=== PATIENT | female | born 1955 | race Caucasian/White ===

== ENCOUNTER → 2017-02-21 | Outpatient (CLI) | payer OTHER ==
[~2017-02-21] MED LIST: ACCUPRIL20TAB PO; ADVIL200 MG PO; AVONEX ADM30 MCG/KIT IM; LEVOXYL0.088 MG PO; TYLENOL EXTRA500 M1 PO; ZOCOR 20MG20 MG PO
== END ==
LOC: COL.RAD 07:15
DX: G35 Multiple sclerosis (principal); R93.0 Abnormal findings on diagnostic imaging of skull and head, not elsewhere classified
CPT/HCPCS: A9585

== ENCOUNTER → 2017-10-11 | Outpatient (CLI) | payer OTHER | LOC: MC.RAD 14:24 | DX: Z12.31 Encounter for screening mammogram for malignant neoplasm of breast (principal) ==

== ENCOUNTER → 2018-07-18 | Outpatient (CLI) | payer OTHER | LOC: COL.RAD 07:26 | DX: Z01.818 Encounter for other preprocedural examination (principal); G35 Multiple sclerosis | CPT/HCPCS: A9585 ==

== ENCOUNTER → 2020-01-15 | Outpatient (CLI) | payer OTHER | LOC: COL.RAD 11:49 | DX: G35 Multiple sclerosis (principal); G37.9 Demyelinating disease of central nervous system, unspecified; M47.812 Spondylosis without myelopathy or radiculopathy, cervical region; M48.02 Spinal stenosis, cervical region | CPT/HCPCS: A9585 ==

== ENCOUNTER → 2020-02-12 | Outpatient (CLI) | payer OTHER | LOC: COL.RAD 07:51 | DX: M25.452 Effusion, left hip (principal) ==

== ENCOUNTER 2020-06-01 08:51 | Inpatient (IN) | payer OTHER ==
[~2020-06-01] VITALS: Ht 162.6 cm; Wt 76.7 kg
[2020-06-21] VITALS (11 sets, daily range): BP systolic 125–156; BP diastolic 66–106; PULSE 71–83; TEMP 97.5–98.4
[2020-06-21] MEDS ORDERED: PROFERRIN ES12 MG PO (07:21)
[2020-06-21] MEDS ORDERED: FOLIC ACID0.4 MG PO (07:21)
[2020-06-21] MEDS ORDERED: VITAMIN D31000 I1 PO (07:22)
[2020-06-21] MEDS ORDERED: NORVASC 5MG5 MG/TAB PO (07:22)
[2020-06-21] MEDS ORDERED: LYSINE1000 MG PO (07:23)
[2020-06-21] MEDS ORDERED: VITAMIN C500 MG PO (07:23)
[2020-06-21] MEDS ORDERED: NATURE'S BLEN1200 MG PO (07:23)
[2020-06-21] MEDS ORDERED: OCUVITE1 TA1 PO (07:23)
[2020-06-21] MEDS ORDERED: MASON NATURAL500 MG PO (07:24)
[2020-06-21] MEDS ORDERED: PHARMASSURE ZIN50 MG PO (07:24)
[2020-06-21] MEDS ORDERED: BOSWELLIA PO (07:25)
[2020-06-21] MEDS ORDERED: AUBAGIO14 MG PO (07:25)
[2020-06-21] MEDS ORDERED: LIPITOR20 MG PO (07:26)
[2020-06-21] MEDS ORDERED: AVALIDE 12.5 MG1 TA1 PO (07:26)
[2020-06-21] MEDS ORDERED: ULTRAM 50MG TAB50 MG PO (07:27)
--- NOTE | 2020-06-21 08:00 | NUR ---
Patient arrives to [facility] [address] for pre-op admission. She is alert and oriented. She can ambulate short distances without difficulty. She has been using a cane at home, but has brought a walker for post-op recovery. Her accompanies her. Home medications are reviewed and recorded on the med rec. Pre-op scrub is completed per order. LYNDSAY hose are sized and placed on non-operative leg per order. PIV is started in left wrist with x1 attempt and no complications. Pre-op medications are given as ordered. Patient is provided a warm blanket for comfort. She denies any further needs at this time. Call light usage is taught and within reach.
--- NOTE | 2020-06-21 19:28 | NUR ---
Patient has done well post op. Vss on room air. Pain well managed with tramadol & tylenol. She reports pain is much improved from prior to surgery. Left hip dressing is occlusive. Teds & scds ble. Cms intact. She tolerated a light dinner without nausea. She was up to the commode & voided, steady on her feet. Patient will have her spouse bring her home MS medication in the am to get resumed. Bedside report Lamont who will resumes cares.
--- NOTE | 2020-06-21 21:30 | NUR ---
Pt. sitting up in bed at this time. Pt. is a&OX3, assessment complete. Pt. reports feeling nauseated and pain. Giving pain and nausea meds per orders. Dressing to lt. hip CDI. Pt. denies further needs, call light within reach.
[2020-06-22 04:07] VITALS: BP 148/73; PULSE 66; TEMP 97.7
--- NOTE | 2020-06-22 07:00 | NUR ---
Pt resting in bed, occlusive dressing to L hip CDI, jim george on, SCD's on, ice applied to L hip. Dt denies pain at this time.
[2020-06-22 07:06] VITALS: BP 135/78; PULSE 70; TEMP 98.1
[2020-06-22 07:13] LABS: HEMATOCRIT 32.4 % (37.0-47.0); HEMOGLOBIN 10.6 g/dl (12.5-16.0)
--- NOTE | 2020-06-22 08:00 | NUR ---
Assessment as charted. Pt ambulated to restroom with gait belt, walker, and one assist. Pt states pain in L hip 5/10 with ambulation, requests pain medication. Primary nurse notified.
--- NOTE | 2020-06-22 09:45 | NUR ---
Patient alert and oriented, answers questions appropriately. See assessment. LLE with dressing CDI, no redness or drainage noted. Neuros intact to LLE, pulses palapable bilaterally. FWB. LYNDSAY hose in place. No c/o at this time.
--- NOTE | 2020-06-22 10:30 | NUR ---
Initial visit; Patient thanked Control Clerk Auditing for looking in on her and offering God's blessings and keeping her in Control Clerk Auditing's prayers.
--- NOTE | 2020-06-22 11:00 | NUR ---
Took off Pt's L hip occlusive dressing per order and placed a 12 inch aquacel. Incision had minimal ecchymosis, edges well approximated. Pt tolerated well.
[2020-06-22 11:28] VITALS: BP 125/68; PULSE 63; TEMP 98
[2020-06-22] MEDS ORDERED: ASPI325T6 PO (14:03)
[2020-06-22] MEDS ORDERED: ROXICODONE 55 MG/TAB PO (14:05)
[2020-06-22] MEDS ORDERED: ULTRAM 50MG TAB50 MG PO (14:05)
[2020-06-22] MEDS ORDERED: SENOKOT S 50 MG1 TAB PO (14:06)
--- NOTE | 2020-06-22 14:06 | NUR ---
GABRIELLA met with the patient and her , Fabián (ph#[phone]), to discuss discharge plan. The patient lives in [place] with her . She reports independence with ADLs and has a cane, walker, walking stick, and toliet riser. The patient's PCP is Dr. Luis Barone and she receives her medications from [facility]. She reports no difficulties obtaining her meds. The patient does not have a DPOA-HC and she was not interested in completing one while here. The patient plans to return home with her and receive outpatient PT at [facility] upon discharge. No additional needs at this time.
--- NOTE | 2020-06-22 14:44 | NUR ---
Discharge instructions reviewed with patient, verbalized understanding. Discharged via wheelchair to auto/home with spouse at 1445.
== END 2020-06-22 14:45 | disposition home or self-care (01) | DRG 470 ==
LOC: INPTSU 06-21 06:47 → SURG 06-21 10:30 → JCC 06-21 13:20
PROVIDERS: ADMIT Orthopaedic Surgery
PROC: 0SRB04Z Replacement of Left Hip Joint with Ceramic on Polyethylene Synthetic Substitute, Open Approach (ICD-10-PCS; principal; 2020-06-21 10:30)
DX: M16.12 Unilateral primary osteoarthritis, left hip (principal)
CPT/HCPCS: A4314; A9284; C1776; J0360; J0690; J1100; J1885; J2250; J2405; J2704; J3010; J7120

== ENCOUNTER → 2020-11-10 | Outpatient (CLI) | payer OTHER ==
[~2020-11-10] MED LIST changes: +ASPI325T6 PO; +AUBAGIO14 MG PO; +AVALIDE 12.5 MG1 TA1 PO; +BOSWELLIA PO; +FOLIC ACID0.4 MG PO; +LIPITOR20 MG PO; +LYSINE1000 MG PO; +MASON NATURAL500 MG PO; +NATURE'S BLEN1200 MG PO; +NORVASC 5MG5 MG/TAB PO; +OCUVITE1 TA1 PO; +PHARMASSURE ZIN50 MG PO; +PROFERRIN ES12 MG PO; +ROXICODONE 55 MG/TAB PO; +SENOKOT S 50 MG1 TAB PO; +ULTRAM 50MG TAB50 MG PO; +VITAMIN C500 MG PO; +VITAMIN D31000 I1 PO
== END ==
LOC: MC.RAD 07:30
DX: Z12.31 Encounter for screening mammogram for malignant neoplasm of breast (principal)

== ENCOUNTER 2021-05-16 11:19 | Outpatient (RCR) | payer OTHER | END 2021-05-30 | disposition home or self-care (01) | LOC: WSOH | DX: S20.211D Contusion of right front wall of thorax, subsequent encounter (principal); G35 Multiple sclerosis; E78.00 Pure hypercholesterolemia, unspecified; I10 Essential (primary) hypertension; E03.9 Hypothyroidism, unspecified; Z96.642 Presence of left artificial hip joint; Z79.899 Other long term (current) drug therapy; Y99.0 Civilian activity done for income or pay ==

== ENCOUNTER → 2021-12-20 | Outpatient (CLI) | payer OTHER | LOC: COL.VAS 11:30 | DX: M25.561 Pain in right knee (principal); Z96.651 Presence of right artificial knee joint ==

== ENCOUNTER → 2023-11-08 | Outpatient (CLI) | payer MEDICARE | LOC: MC.RAD 09:25 | DX: Z12.31 Encounter for screening mammogram for malignant neoplasm of breast (principal) ==